=== PATIENT | male | born 1995 | race Caucasian/White ===

== ENCOUNTER 2025-04-05 11:46 | Emergency (ER) | payer OTHER, SELFPAY ==
[2025-04-05] MEDS ORDERED: Bacitracin 1 PK ONE (12:00)
[2025-04-05] MEDS ORDERED: Acetaminophen 500 MG TAB ONE (12:00)
[2025-04-05] MEDS ORDERED: Acetaminophen 325 MG TAB ONE (12:04)
[2025-04-05] MEDS ORDERED: Cyclobenzaprine 10 MG TAB ONE (13:46)
[2025-04-05] MEDS ORDERED: Ibuprofen 800 MG TAB ONE (13:47)
== END 2025-04-05 14:13 | disposition home or self-care (01) ==
LOC: MADERS 11:46
DX: S33.5XXA Sprain of ligaments of lumbar spine, initial encounter (principal); S60.222A Contusion of left hand, initial encounter; S00.31XA Abrasion of nose, initial encounter; R03.0 Elevated blood-pressure reading, without diagnosis of hypertension; F17.210 Nicotine dependence, cigarettes, uncomplicated; V68.5XXA Driver of heavy transport vehicle injured in noncollision transport accident in traffic accident, initial encounter
CPT/HCPCS: 70450; 70486; 72125; 72131; 94760